=== PATIENT | female | born 1950 | race Two or more races ===

== ENCOUNTER 2024-05-03 17:04 | Emergency (ER) | payer OTHER ==
[~2024-05-03] VITALS: Ht 152.4 cm; Wt 63.5 kg
[2024-05-03] MEDS ORDERED: KETOROLAC TROMETHAMINE 30 MG VIAL IM ONE (17:45)
== END 2024-05-03 20:51 | disposition home or self-care (01) ==
LOC: ER 17:04
DX: S42.215A Unspecified nondisplaced fracture of surgical neck of left humerus, initial encounter for closed fracture (principal); W18.39XA Other fall on same level, initial encounter; Y93.89 Activity, other specified; Y92.89 Other specified places as the place of occurrence of the external cause; Y99.9 Unspecified external cause status; Z88.2 Allergy status to sulfonamides; Z88.8 Allergy status to other drugs, medicaments and biological substances